=== PATIENT | female | born 1975 | race Caucasian/White ===

== ENCOUNTER 2017-07-21 09:17 | Observation (INO) | payer BC ==
[2017-07-21] MEDS ORDERED: BENADRYL 50 MG/ML IV ONE (09:29)
[2017-07-21] MEDS ORDERED: Hydromorphone 1 mg/ml Ampule IV ONE (09:29)
[2017-07-21] MEDS ORDERED: Sodium Chloride 0.9% 1000 ML 1,000 ML IV SCH (09:30)
--- NOTE | 2017-07-21 09:34 | ERPHSYRPT ---
- History of Present Illness Time Seen by Provider: 07/21/17 09:25 Historian: patient Physician History: CC: abd pain Hx: 42 y/o patient of Dr Tam. She had prior lap band surgery with erosion and post complications remotely. She now has LLQ abd pain for a couple of days, burning, sharp, moderately severe. No fever. Normal urination. No vomiting. Used warm pack for comfort. She went to [facility] and was sent here. She had prior MALAIKA/BSO and appendectomy. Allergies/Adverse Reactions: metoclopramide [From Reglan] Allergy (Verified 07/21/17 09:32) morphine Allergy (Verified 07/21/17 09:32) Home Medications: Estradiol 1 mg [Estrace 1 mg] 2 mg DAILY 07/21/17 [History] - Review of Systems Constitutional: No Fever, No Chills Eyes: No Symptoms Ears, Nose, & Throat: No Symptoms Respiratory: No Cough, No Dyspnea Cardiac: No Chest Pain Abdominal/Gastrointestinal: Abdominal Pain (LLQ), Diarrhea (chronic), No Vomiting Genitourinary Symptoms: No Dysuria, No Hematuria, No Flank Pain Musculoskeletal: No Back Pain Skin: No Rash Neurological: No Headache All Other Systems: Reviewed and Negative - Past Medical History Neurological History: No Pertinent History Cardiac History: No Pertinent History Respiratory History: No Pertinent History Endocrine Medical History: No Pertinent History Other Medical History: bone spur-Pt cant remember which foot - Past Surgical History Gastrointestinal: Appendectomy Female Surgical History: Hysterectomy (with BSO) - Social History Patient Lives Alone: No - Nursing Vital Signs Nursing Vital Signs: Initial Vital Signs Temperature 97.7 F 07/21/17 09:26 Pulse Rate 94 H 07/21/17 09:26 Respiratory Rate 18 07/21/17 09:26 Blood Pressure 149/91 07/21/17 09:26 O2 Sat by Pulse Oximetry 98 07/21/17 09:26 Pain Scale Pain Intensity 3 - Physical Exam General Appearance: alert Eye Exam: PERRL/EOMI Ears, Nose, Throat Exam: normal ENT inspection, moist mucous membranes Neck Exam: normal inspection, non-tender, supple Respiratory Exam: normal breath sounds, lungs clear Cardiovascular Exam: regular rate/rhythm Gastrointestinal/Abdomen Exam: soft, tenderness (LLQ qith guarding), guarding, No distention, No mass Back Exam: normal inspection, normal range of motion Extremity Exam: normal inspection, normal range of motion Neurologic Exam: alert, oriented x 3, cooperative, sensation nml, No motor deficits Skin Exam: warm, dry, No rash - Course Nursing assessment & vital signs reviewed: Yes Ordered Tests: Active Orders 24 hr Category Date Time Status Clean Catch Urine Specimen STAT Care 07/21/17 09:29 Active IV Insertion STAT Care 07/21/17 09:29 Active NPO (ED) STAT Care 07/21/17 09:29 Active ABDOMEN AND PELVIS W CONTRAST [CT] Stat Exams 07/21/17 09:29 Completed CBC W DIFF Stat Lab 07/21/17 09:40 Completed CMP Stat Lab 07/21/17 09:40 Completed CULTURE,URINE Stat Lab 07/21/17 09:40 Received LIPASE Stat Lab 07/21/17 09:40 Completed Lactic Acid Stat Lab 07/21/17 09:43 Completed UA W/ MICROSCOPIC Stat Lab 07/21/17 09:40 Completed Transfer Order Routine Transfer 07/21/17 Ordered Medication Summary Generic Name Dose Route Start Last Admin Trade Name Freq PRN Reason Stop Dose Admin Sodium Chloride 1,000 mls @ 100 mls/hr 07/21/17 09:30 07/21/17 09:49 Sodium Chloride 0.9% 1000 Ml IV 08/20/17 09:29 100 mls/hr .Q10H KHOA Administration Potassium Chloride/Dextrose/Sod Cl 1,000 mls @ 100 mls/hr 07/21/17 11:30 11:44 D5w/0.45ns W/ 20meq Kcl 1000 Ml IV 07/21/17 21:29 100 mls/hr .Q10H KHOA Administration Metronidazole 500 mg in 100 mls @ 200 mls/hr 07/21/17 11:41 Flagyl 500 Mg Ivpb IV 07/21/17 12:10 STAT STA Levofloxacin/Dextrose 750 mg in 150 mls @ 100 mls/hr 07/21/17 11:41 Levofloxacin 750mg/150ml D5w IV 07/21/17 13:10 STAT STA Discontinued Medications Generic Name Dose Route Start Last Admin Trade Name Freq PRN Reason Stop Dose Admin Diphenhydramine HCl 25 mg 07/21/17 09:29 07/21/17 09:49 Benadryl 50 Mg/Ml IV 07/21/17 09:30 25 mg STAT ONE Administration Diphenhydramine HCl Confirm 07/21/17 09:45 Benadryl 50 Mg/Ml Administered 07/21/17 09:46 Dose 50 mg .ROUTE .STK-MED ONE Hydromorphone HCl 1 mg 07/21/17 09:29 07/21/17 09:46 Hydromorphone 1 Mg/Ml Ampule IV 07/21/17 09:30 1 mg STAT ONE Administration Hydromorphone HCl Confirm 07/21/17 09:45 Hydromorphone 1 Mg/Ml Ampule Administered 07/21/17 09:46 Dose 1 mg .ROUTE .STK-MED ONE Lab/Rad Data: Laboratory Result Diagrams 07/21/17 09:40 07/21/17 09:40 Laboratory Results 07/21/17 07/21/17 07/21/17 Range/Units 09:43 09:40 09:40 WBC 9.8 (4.0-10.5) K/mm3 RBC 4.22 (4.1-5.4) M/mm3 Hgb 12.8 (12.0-16.0) gm/dl Hct 38.8 (35-47) % MCV 91.9 (78-100) fl MCH 30.3 (26-32) pg MCHC 33.0 (32-36) g/dl RDW 13.6 (11.5-14.0) % Plt Count 237 (150-450) K/mm3 MPV 9.5 (6-9.5) fl Gran % 68.6 H (36.0-66.0) % Lymphocytes % 21.8 L (24.0-44.0) % Monocytes % 7.7 (0.0-12.0) % Eosinophils % 1.7 (0.00-5.0) % Basophils % 0.2 (0.0-0.4) % Basophils # 0.02 (0-0.4) Sodium 141 (136-145) mEq/L Potassium 4.0 (3.5-5.1) mEq/L Chloride 106 (98-107) mEq/L Carbon Dioxide 26.0 (21-32) mEq/L Anion Gap 12.9 (5-15) MEQ/L BUN 12 (9-20) mg/dL Creatinine 0.75 (0.55-1.30) mg/dl Estimated GFR > 60 ML/MIN Glucose 67 L (70-110) MG/DL Lactic Acid 1.3 (0.4-2.0) Calcium 9.3 (8.5-10.1) mg/dL Total Bilirubin 0.30 (0.2-1.0) mg/dL AST 14 L (15-37) U/L ALT 23 (12-78) U/L Alkaline Phosphatase 67 (46-116) U/L Serum Total Protein 7.5 (6.4-8.2) gm/dL Albumin 3.8 (3.4-5.0) g/dL Lipase 197 (73-393) U/L Ur Collection Type Urine Color (YELLOW) Urine Appearance (CLEAR) Urine pH (5-6) Ur Specific [place] (1.005-1.025) Urine Protein (Negative) Urine Ketones (NEGATIVE) Urine Blood (0-5) Brant/ul Urine Nitrite (NEGATIVE) Urine Bilirubin (NEGATIVE) Urine Urobilinogen (0-1) mg/dL Ur Leukocyte Esterase (NEGATIVE) Urine Microscopic RBC (0-2) /HPF Urine Microscopic WBC (0-5) /HPF Ur Epithelial Cells (FEW) /HPF Urine Bacteria (NEGATIVE) /HPF Urine Culture Reflexed (NO) Urine Glucose (NEGATIVE) mg/dL Specimen Received 07/21/17 Range/Units 09:40 WBC (4.0-10.5) K/mm3 RBC (4.1-5.4) M/mm3 Hgb (12.0-16.0) gm/dl Hct (35-47) % MCV (78-100) fl MCH (26-32) pg MCHC (32-36) g/dl RDW (11.5-14.0) % Plt Count (150-450) K/mm3 MPV (6-9.5) fl Gran % (36.0-66.0) % Lymphocytes % (24.0-44.0) % Monocytes % (0.0-12.0) % Eosinophils % (0.00-5.0) % Basophils % (0.0-0.4) % Basophils # (0-0.4) Sodium (136-145) mEq/L Potassium (3.5-5.1) mEq/L Chloride (98-107) mEq/L Carbon Dioxide (21-32) mEq/L Anion Gap (5-15) MEQ/L BUN (9-20) mg/dL Creatinine (0.55-1.30) mg/dl Estimated GFR ML/MIN Glucose (70-110) MG/DL Lactic Acid (0.4-2.0) Calcium (8.5-10.1) mg/dL Total Bilirubin (0.2-1.0) mg/dL AST (15-37) U/L ALT (12-78) U/L Alkaline Phosphatase (46-116) U/L Serum Total Protein (6.4-8.2) gm/dL Albumin (3.4-5.0) g/dL Lipase (73-393) U/L Ur Collection Type CCMS Urine Color YELLOW (YELLOW) Urine Appearance SLIGHTLY HAZY (CLEAR) Urine pH 5.0 (5-6) Ur Specific [place] 1.025 (1.005-1.025) Urine Protein NEGATIVE (Negative) Urine Ketones NEGATIVE (NEGATIVE) Urine Blood 5-10 (0-5) Brant/ul Urine Nitrite NEGATIVE (NEGATIVE) Urine Bilirubin NEGATIVE (NEGATIVE) Urine Urobilinogen NORMAL (0-1) mg/dL Ur Leukocyte Esterase TRACE (NEGATIVE) Urine Microscopic RBC 2-5 (0-2) /HPF Urine Microscopic WBC 5-10 (0-5) /HPF Ur Epithelial Cells PACKED (FEW) /HPF Urine Bacteria MANY (NEGATIVE) /HPF Urine Culture Reflexed YES (NO) Urine Glucose NEGATIVE (NEGATIVE) mg/dL Specimen Received 07/21 1000 - Progress Progress Note: 07/21/17 11:20 CT abd/pelvis: shows sigmoid diverticulitis. Advised admit for IV abtx with her hx of bariatric surgery. CAlled Dianna BANKS for Dr De La Torre and reviewed tests. She agrees with IV abtx and admission here. Paged Dr Padgett (oc). 07/21/17 11:[address] Padgett (oc) and will place in obs for IV levaquin and falgyl. Counseled pt/family regarding: lab results, diagnosis, need for follow-up, rad results - Departure Time of Disposition: 11:48 Departure Disposition: Observation Clinical Impression: Acute diverticulitis Condition: Fair Critical Care Time: No Referrals: DOCTOR,NO FAMILY [Primary Care Provider] -
[2017-07-21] MEDS ORDERED: Hydromorphone 1 mg/ml Ampule ONE (09:45)
[2017-07-21] MEDS ORDERED: BENADRYL 50 MG/ML ONE (09:45)
[2017-07-21 09:51] LABS: BASOPHIL % 0.2 % (0.0-0.4); Eosinophil % 1.7 % (0.00-5.0); Granulocytes % 68.6 % (36.0-66.0); Lymphocytes % 21.8 % (24.0-44.0); Mean Cell Volume 91.9 fl (78-100); Mean Corpuscular Hemoglobin 30.3 pg (26-32); Mean Platelet Volume 9.5 fl (6-9.5); Monocytes % 7.7 % (0.0-12.0); Platelet Count 237 K/mm3 (150-450); Red Blood Count 4.22 M/mm3 (4.1-5.4); Red Cell Distribution Width 13.6 % (11.5-14.0); White Blood Count 9.8 K/mm3 (4.0-10.5)
[2017-07-21 10:13] LABS: Bilirubin NEGATIVE (NEGATIVE); Collection Type CCMS; Glucose NEGATIVE (NEGATIVE); Leukocyte Esterase TRACE (NEGATIVE)
[2017-07-21 10:14] LABS: ADD URINE CULTURE? YES (NO); Bacteria MANY /HPF (NEGATIVE); COMPLETE URINE MICROSCOPIC? YES; Epithelial Cells PACKED /HPF (FEW)
[2017-07-21 10:19] LABS: ALBUMIN 3.8 g/dL (3.4-5.0); ALKALINE PHOSPHATASE 67 U/L (46-116); ANION GAP 12.9 MEQ/L (5-15); BLOOD UREA NITROGEN 12 mg/dL (9-20); CHLORIDE 106 mEq/L (98-107); Glucose 67 MG/DL (70-110); LIPASE 197 U/L (73-393); SGOT/AST 14 U/L (15-37); SGPT/ALT 23 U/L (12-78); SODIUM 141 mEq/L (136-145); Total Protein 7.5 gm/dL (6.4-8.2)
--- NOTE | 2017-07-21 10:41 | XRAY ---
Indication: Left lower quadrant pain for 2 days. Multiple contiguous axial images obtained through the abdomen and pelvis using 80 cc Isovue 370 contrast only. Comparison: None Lung bases demonstrate is minimal bibasilar dependent atelectasis. Heart is not enlarged. Small hiatal hernia. Noncontrasted stomach and bowel loops appear nonobstructed. Greater curvature of the stomach demonstrates suture like material. No free fluid/air. Mild scattered colonic fecal debris throughout and mild descending/sigmoid diverticulosis. At the junction of the descending/sigmoid colon, there is mild pericolonic stranding probably mild diverticulitis. Previous cholecystectomy, hysterectomy, and reported appendectomy. Remaining liver, pancreas, spleen, adrenal glands, kidneys, ureters, bladder, and aorta appear normal in CT appearance and attenuation. No pathologic retroperitoneal lymphadenopathy. Osseous structures intact. Impression: 1. Descending/sigmoid diverticulosis. Small focus of mild diverticulitis at the junction of the descending/sigmoid colon. No complications. 2. Mild fecal stasis without obstruction. 3. Small hiatal hernia. CT DI 27.97
[2017-07-21] MEDS ORDERED: D5W/0.45NS W/ 20mEq KCl 1000 ML 1,000 ML IV SCH (11:30)
[2017-07-21] MEDS ORDERED: FLAGYL 500 MG IVPB 500 MG/100 ML BAG IV STA (11:41)
[2017-07-21] MEDS ORDERED: LEVOFLOXACIN 750MG/150ML D5W 750 MG/150 ML BAG IV STA (11:41)
[2017-07-21] MEDS ORDERED: LEVOFLOXACIN 750MG/150ML D5W 750 MG/150 ML BAG IV ONE (12:24)
[2017-07-21] MEDS ORDERED: Zofran 4 MG/2 ML VIAL IV PRN (13:02)
[2017-07-21] MEDS ORDERED: FLAGYL 500 MG IVPB 500 MG/100 ML BAG IV SCH (13:02)
[2017-07-21] MEDS ORDERED: Phenergan 25 MG INJ IV PRN (13:31)
[2017-07-21] MEDS: PROTONIX 40 MG IV IV SCH (13:35)
[2017-07-21] MEDS ORDERED: TYLENOL 325 MG PO PRN (13:39)
[2017-07-21] MEDS: FLAGYL 500 MG IVPB 500 MG/100 ML BAG IV SCH ×2 (13:56→21:23)
--- NOTE | 2017-07-21 13:59 | HP ---
HISTORY OF PRESENT ILLNESS: This is a 42 year-old patient without a physician who presented first to [facility] and then the emergency department. She reports that she was having some left lower abdominal pain that started on Thursday. She reports she does have some chronic abdominal pain that is usually a little bit high in the left upper quadrant. She has a history of having a lap band placed in 2009 which then eroded and in 2012 this was removed by Dr. Hidalgo at [facility] in [place]. She last saw him three months ago. He also done approximately six scopes with dilation and he transferred her care to a pellet preparation operator, Dr. De La Torre recently. She has seen Dr. De La Torre. He checked for celiac disease and also scheduled an upper endoscopy with push enteroscopy 08/12/2017. She reports at home she was taking ibuprofen and Tylenol without relief of her pain. She states that is better now. It seems to be worse when she is moving. She has a history of chronic diarrhea approximately x6 months but that occurs anytime she eats food or liquid. She reports that this usually happens at least three times a day. In the emergency department, she had CT of her abdomen and pelvis that revealed some mild diverticulitis and it was thought that she should come in for IV antibiotics given the pain she was having with this. She denied any stool today. She reports her last stool was watery yesterday. REVIEW OF SYSTEMS: She states sometimes she feels like food gets stuck in her throat. She denies any nausea or vomiting. She has felt cold for three days but no shaking chills. No chest pain. No dyspnea. Otherwise review of systems is negative. PAST MEDICAL HISTORY: She is in a postmenopausal state due to surgical removal of both of her ovaries. She has the diarrhea and chronic GI problems as described in the history of present illness. PAST SURGICAL HISTORY: Cholecystectomy, hysterectomy, two sections, appendectomy, both ovaries removed. MEDICATIONS: Estradiol 2 mg p.o. daily. ALLERGIES: MORPHINE, REGLAN. SOCIAL HISTORY: No tobacco. Rare alcohol use. She lives with her two children and her . FAMILY HISTORY: Her mother is living and has diabetes, hypertension, hyperlipidemia, anxiety. Her father is and of kidney cancer that was diagnosed when he was 57 and he when he was 60. PHYSICAL EXAMINATION: VITAL SIGNS: Temperature current 97.7F, temperature max 97.7F, heart rate 65 to 94, respiratory rate 18 to 20, blood pressure 114 to 149 over 76 to 91, weight 112 kg. Oxygen saturation 96 to 100% on room air. GENERAL: The patient is a pleasant talkative lady lying in bed in no acute distress. CVS: She has a regular rate and rhythm. No murmurs, gallops or rubs are appreciated. CHEST: Clear to auscultation bilaterally. No crackles or wheezes. Equal breath sounds. ABDOMEN: Mildly tender in the right and left lower quadrant with worse pain in the left lower quadrant. No guarding. No rigidity. Normal bowel sounds. EXTREMITIES: No clubbing, cyanosis or edema. SKIN: Warm, dry and intact. LABORATORY DATA AND TESTS: CBC within normal limits. CMP had glucose of 67. UA revealed packed epithelial cells and many bacteria. Urine culture in lab. CT scan was read as descending sigmoid diverticulosis, small focus of mild diverticulitis at the junction of the descending/sigmoid colon. Mild fecal stasis without obstruction, small hiatal hernia. Please see the radiologist report for the full dictation. ASSESSMENT AND PLAN: 1) DIVERTICULITIS: She has been started on levofloxacin as well as metronidazole which we will continue at this time. She is on IV fluids. I have advanced her diet from NPO to clear liquid. She has Dilaudid ordered as needed for pain and Phenergan ordered if she has nausea. Will recheck her CMP and BMP in the morning. 2) POSTMENOPAUSAL STATE: Will continue with her estrogen. 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 4) CHRONIC DIARRHEA: She will need to follow up as an outpatient with her pellet preparation operator, Dr. De La Torre.
[2017-07-21] MEDS ORDERED: MERREM 500MG 500 MG in Sodium Chloride 100ML MINI-BAG PLUS 100 ML IV SCH (14:00)
[2017-07-21] MEDS: DILAUDID 2 MG INJECTION IV PRN ×2 (16:32→21:22)
[2017-07-21] MEDS: D5W/0.45NS W/ 20mEq KCl 1000 ML 1,000 ML IV SCH (18:38)
[2017-07-22] MEDS: D5W/0.45NS W/ 20mEq KCl 1000 ML 1,000 ML IV SCH (00:15)
[2017-07-22 05:47] LABS: BASOPHIL % 0.3 % (0.0-0.4); Eosinophil % 3.1 % (0.00-5.0); Lymphocytes % 38.9 % (24.0-44.0); Mean Cell Volume 94.3 fl (78-100); Mean Platelet Volume 9.6 fl (6-9.5); Monocytes % 6.7 % (0.0-12.0); Platelet Count 209 K/mm3 (150-450); Red Blood Count 3.69 M/mm3 (4.1-5.4); Red Cell Distribution Width 13.7 % (11.5-14.0); White Blood Count 6.7 K/mm3 (4.0-10.5)
[2017-07-22 05:50] LABS: Mean Corpuscular Hemoglobin 30.3 pg (26-32)
[2017-07-22 06:03] LABS: ANION GAP 10.1 MEQ/L (5-15); BLOOD UREA NITROGEN 6 mg/dL (9-20); CHLORIDE 108 mEq/L (98-107); Carbon Dioxide 25.4 mEq/L (21-32); Glucose 107 MG/DL (70-110); Potassium 3.8 mEq/L (3.5-5.1); SODIUM 140 mEq/L (136-145)
[2017-07-22] MEDS: FLAGYL 500 MG IVPB 500 MG/100 ML BAG IV SCH (06:09)
[2017-07-22] MEDS ORDERED: Tylenol #3 Tablet PO PRN (08:25)
--- NOTE | 2017-07-22 08:35 | PCM.NOTE ---
Date and Time: 07/22/17827 Subjective Assessment: She reports she continues to have some abdominal pain but it has been better and she last needed IV pain medication last night. She is tolerating the clear liquid diet well. She is not having any problems urinating. She has not had any stools since her admission. - Review of Systems Constitutional: No Symptoms Eyes: No Symptoms Respiratory: No Symptoms Cardiac: No Symptoms Abdominal/Gastrointestinal: Abdominal Pain, No Nausea, No Vomiting, No Diarrhea , No Constipation Genitourinary Symptoms: No Symptoms Musculoskeletal: No Symptoms Skin: No Symptoms Objective Exam General Appearance: no apparent distress, alert Neurologic Exam: alert, cooperative, normal mood/affect Skin Exam: normal color, warm, dry Cardiovascular Exam: regular rate/rhythm, normal heart sounds, No murmur, No friction rub, No gallop Gastrointestinal/Abdomen Exam: soft, normal bowel sounds, tenderness, other ( mild tenderness left lower quadrant and periumbilical area), No distention, No mass, No guarding Extremity Exam: normal inspection, other (no c/c/e) OBJECTIVE DATA Vital Signs: Vital Signs - 24 hr Temp Pulse Resp BP Pulse Ox 07/22/17 07:38 98.3 F 76 18 117/65 96 07/22/17 04:00 98.2 F 63 16 115/57 92 L 07/22/17 00:00 97.8 F 69 20 107/60 94 L 07/21/17 20:00 96.4 F 63 18 109/59 93 L 07/21/17 16:00 98 F 74 20 117/79 95 07/21/17 13:24 98.4 F 84 20 142/82 99 07/21/17 12:57 78 18 114/78 100 07/21/17 12:34 68 18 138/84 97 07/21/17 11:28 65 20 122/76 96 07/21/17 09:26 97.7 F 94 H 18 149/91 98 Pain Assessment - Last Documented Pain Intensity 0 Pain Scale Used 0-10 Pain Scale Intake and Output: Intake & Output 07/20/17 07/21/17 07/22/17 07/23/17 06:59 06:59 06:59 06:59 Intake Total 3134 Output Total 1300 Balance 1834 Weight 112.763 kg Lab Results: Lab Results-Last 24 Hours 07/22/17 07/22/17 Range/Units 05:20 05:20 WBC 6.7 (4.0-10.5) K/mm3 RBC 3.69 L (4.1-5.4) M/mm3 Hgb 11.2 L (12.0-16.0) gm/dl Hct 34.8 L (35-47) % MCV 94.3 (78-100) fl MCH 30.3 (26-32) pg MCHC 32.2 (32-36) g/dl RDW 13.7 (11.5-14.0) % Plt Count 209 (150-450) K/mm3 MPV 9.6 H (6-9.5) fl Gran % 51.0 (36.0-66.0) % Lymphocytes % 38.9 (24.0-44.0) % Monocytes % 6.7 (0.0-12.0) % Eosinophils % 3.1 (0.00-5.0) % Basophils % 0.3 (0.0-0.4) % Basophils # 0.02 (0-0.4) Sodium 140 (136-145) mEq/L Potassium 3.8 (3.5-5.1) mEq/L Chloride 108 H (98-107) mEq/L Carbon Dioxide 25.4 (21-32) mEq/L Anion Gap 10.1 (5-15) MEQ/L BUN 6 L (9-20) mg/dL Creatinine 0.69 (0.55-1.30) mg/dl Estimated GFR > 60 ML/MIN Glucose 107 (70-110) MG/DL Calcium 8.4 L (8.5-10.1) mg/dL Assessment/Plan (1) Acute diverticulitis Current Visit: Yes Status: Acute Assessment & Plan: Continue IV antibiotics and advance diet today to regular. I have asked the coppersmith apprentice to see her in regards to a good diet for diverticulosis. If she does well through lunch, I will plan to discharge her on oral antibiotics. I have changed her pain medication to Tylenol #3 or tylenol depending on how bad her pain is. I encouraged her to follow up with Dr. De La Torre as an outpatient as well as myself after her discharge. Her white blood cell count was normal on admission and continues to be normal. Code(s): K57.92 - DVTRCLI OF INTEST, PART UNSP, W/O PERF OR ABSCESS W/O BLEED (2) Post-menopausal Current Visit: Yes Status: Acute Assessment & Plan: Post menopausal due to ovaries being removed. Continue estrogen. (3) Chronic diarrhea Current Visit: Yes Status: Acute Assessment & Plan: She has not had any stools here. Code(s): K52.9 - NONINFECTIVE GASTROENTERITIS AND COLITIS, UNSPECIFIED
[2017-07-22] MEDS: PROTONIX 40 MG IV IV SCH (09:36)
[2017-07-22] MEDS ORDERED: LEVOFLOXACIN 750MG/150ML D5W 750 MG/150 ML BAG IV SCH (10:00)
[2017-07-22] MEDS ORDERED: ESTRACE 1 MG PO SCH (10:00)
[2017-07-22 11:12] VITALS: BP 140/56; PULSE 73; O2SAT 94
== END 2017-07-22 14:25 | disposition home or self-care (01) ==
LOC: ED 09:17 → MED SURG 13:01
PROVIDERS: ADMIT Internal Medicine; ATTEND Internal Medicine
DX: K57.92 Diverticulitis of intestine, part unspecified, without perforation or abscess without bleeding (principal); Z78.0 Asymptomatic menopausal state; K52.9 Noninfective gastroenteritis and colitis, unspecified; Z79.899 Other long term (current) drug therapy
CPT/HCPCS: 36000; 36415; 74177; 80048; 80053; 81000; 83605; 83690; 85025; 87086; 96360; 96361; 96365; 96374; 96375; 99285; G0378; J1170; J1200; J1956; J2550; A9270-GY

== ENCOUNTER 2018-06-14 14:49 | Emergency (ER) | payer BC, OTHER ==
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
[2018-06-14] MEDS ORDERED: Sodium Chloride 0.9% 1000 ML 1,000 ML IV STA (15:27)
[2018-06-14] MEDS ORDERED: Zofran 4 MG/2 ML VIAL IV ONE (15:27)
[2018-06-14] MEDS ORDERED: Zofran 4 MG/2 ML VIAL ONE (16:07)
[2018-06-14] MEDS ORDERED: Sodium Chloride 0.9% 1000 ML 1,000 ML ONE (16:07)
--- NOTE | 2018-06-14 16:17 | XRAY ---
Indication: Pain and dizziness following fall. Multiple contiguous axial images obtained through the head without contrast. Comparison: None. Normal appearing brain parenchyma, ventricles, and bony calvarium. Visualized paranasal sinuses and mastoid air cells are essentially clear. Impression: Normal CT head without contrast exam.. CTDI 51.47
--- NOTE | 2018-06-14 16:19 | XRAY ---
Indication: Pain following fall yesterday. Multiple contiguous axial images obtained through the cervical spine. Sagittal and coronal reformatted images obtained. Comparison: None. Axial images negative for acute fracture, suspicious bony lesions, or spinal canal stenosis. Minimal C6-C7 endplate spurring. Sagittal and coronal reformatted images demonstrates straight cervical lordotic screening, positional versus paraspinal spasm. Vertebral body heights and disc spaces maintained. No acute compression fracture, subluxation, or jumped facet. Normal-appearing craniocervical junction. Visualized noncontrasted soft tissues demonstrates minimal left carotid calcifications. Lung apices clear. CT had reported separately. Impression: 1. Cervical lordotic straightening, positional versus paraspinal spasm. 2. Negative acute fracture/subluxation. CTDI 64.09
[2018-06-14 16:32] LABS: BASOPHIL % 0.2 % (0.0-0.4); Basophil (Absolute #) 0.02 (0-0.4); Eosinophil % 0.3 % (0.00-5.0); Eosinophil (Absolute #) 0.03 (0-0.5); Granulocyte Absolute (ANC) 8.51 (1.4-6.9); Granulocytes % 80.3 % (36.0-66.0); Hemoglobin 14.4 gm/dl (12.0-16.0); Lymphocyte (Absolute #) 1.66 (1.0-4.6); Lymphocytes % 15.7 % (24.0-44.0); Mean Cell Volume 93.3 fl (78-100); Mean Corpuscular Hgb Concent. 34.3 g/dl (32-36); Mean Platelet Volume 9.8 fl (6-9.5); Monocyte (Absolute #) 0.37 (0.0-1.3); Monocytes % 3.5 % (0.0-12.0); Platelet Count 238 K/mm3 (150-450); Red Cell Distribution Width 13.6 % (11.5-14.0); White Blood Count 10.6 K/mm3 (4.0-10.5)
[2018-06-14 16:35] LABS: Appearance CLOUDY (CLEAR); Bilirubin NEGATIVE (NEGATIVE); Blood NEGATIVE Ery/ul (0-5); Glucose NEGATIVE (NEGATIVE); Ketones NEGATIVE (NEGATIVE); Leukocyte Esterase MODERATE (NEGATIVE); Nitrite NEGATIVE (NEGATIVE); Protein,Urine Dip 30 (Negative); Specific Gravity 1.029 (1.005-1.025); Urobilinogen 4 mg/dL (0-1)
[2018-06-14 16:58] LABS: ALBUMIN 4.3 g/dL (3.5-5.0); ALKALINE PHOSPHATASE 74 U/L (38-126); ANION GAP 12.7 MEQ/L (5-15); BLOOD UREA NITROGEN 10 mg/dL (7-17); CHLORIDE 106 mmol/L (98-107); Calcium 9.7 mg/dL (8.4-10.2); Carbon Dioxide 25 mmol/L (22-30); Creatinine 1 0.51 mg/dL (0.52-1.04); Glucose 110 mg/dL (74-106); Potassium 3.9 mmol/L (3.5-5.1); SGOT/AST 25 U/L (14-36); SGPT/ALT 18 U/L (0-35); SODIUM 140 mmol/L (137-145); Total Protein 7.4 g/dL (6.3-8.2)
[2018-06-14 18:19] VITALS: BP 130/72; PULSE 60; O2SAT 96
== END 2018-06-14 18:10 | disposition home or self-care (01) ==
LOC: ED 14:49
DX: N39.0 Urinary tract infection, site not specified (principal); S06.0X0A Concussion without loss of consciousness, initial encounter; W01.198A Fall on same level from slipping, tripping and stumbling with subsequent striking against other object, initial encounter; R42 Dizziness and giddiness; R51 Headache; F32.9 Major depressive disorder, single episode, unspecified
CPT/HCPCS: 36415; 70450; 72125; 80053; 81001; 84484; 85025; 87086; 93005; 96360; 96374; 99284; J2405